=== PATIENT | female | born 1985 | race Caucasian/White ===

== ENCOUNTER 2024-09-15 19:32 | Emergency (ER) | payer OTHER, SELFPAY ==
[2024-09-15 19:41] VITALS: BP 147/95; PULSE 76; RESP 20; TEMP 36.7; O2SAT 100
--- NOTE | 2024-09-15 19:42 | ED_ITS ---
HPI - Dental/Oral General Chief complaint: Dental/Oral Stated complaint: tooth pain Time Seen by Provider: 09/15/24 19:42 Source: patient, family, RN notes reviewed and old records reviewed Mode of arrival: ambulatory Limitations: no limitations History of Present Illness HPI Narrative: 39 year old female accompanied by family member with complaints of dental pain to the left lower most posterior tooth which is wisdom tooth. Tooth has redness and swelling with some bloody looking drainage around gum. tissue around tooth inflamed and swollen. Patient reporting that pain has become really bad today. Patient reports that upper wisdom tooth has bothered her also but lower one is causing the acute pain today . Patient noted to have some broken teeth and cavities. Patient reports that she has been told that she needs wisdom teeth extracted. Patient reports that she has taken some Ibuprofen with out improvement. MD Complaint: tooth pain Location: Tooth # (17) Onset (ago): day(s) (increased pain today to #!7 tooth) Duration: constant Severity: moderate Related Data Home Medications ?Medication ?Instructions ?Recorded ?Confirmed ?Last Taken ?Type naltrexone-bupropion PO 09/15/24 Unknown History Allergies Allergy/AdvReac Type Severity Reaction Status Date / Time amoxicillin Allergy Unknown Unknown Verified 09/15/24 19:45 Review of Systems Review of Systems: CONSTITUTIONAL: Denies fever, chills, or sweats. ENT: Denies rhinorrhea, congestion, sore throat, or otalgia. Reports dental pain ro left upper and lower most posterior molars, Patient reports that she has been told by dentist that she needs her wisdom teeth removed, Patient reports that she has some pain to her jaw area also from the teeth, no acute facial swelling noted. CARDIOVASCULAR: Denies chest pain, palpitations, or edema. RESPIRATORY: Denies cough or dyspnea. SKIN: Denies rash or itching. MUSCULOSKELETAL: Denies myalgia. NEUROLOGIC: Denies headache All systems reviewed & are unremarkable except as noted in HPI and below PMFSH Past Medical History Medical History (Updated 09/17/24 @ 16:25 by Michelle Hewitt NP) Fracture of lower limb, left, open had dontrell in leg Surgical History Surgical History (Updated 09/17/24 @ 16:24 by Michelle Hewitt NP) H/O section x2 Social History Social History (Updated 09/17/24 @ 16:25 by RUTHIE Jean Smoking status: Never smoker Alcohol intake: current Alcohol use details: social Substance use type: does not use Living arrangements: with family Gender identity (if verbalized by the patient): Female Comments At time of signature, agree with nursing past medical, surgical, social and family history. There is no relevant family history pertinent to the presenting complaint Exam Narrative: GENERAL: Well-appearing, well-nourished, and in no acute distress. HEAD: Normocephalic, atraumatic. EYES: PERRLA and EOMI. ENT: Nares clear, no rhinorrhea or epistaxis. Mucous membranes moist. broken teeth, caries noted with left lower wisdom tooth impacted with swelling and redness and pain NECK: Supple. no lymphadenopathy CHEST: Clear to auscultation. No respiratory distress.[id number]% on room air HEART: Regular rate and rhythm. No murmur heard. Normal peripheral pulses. SKIN: Warm, dry, no rash. NEURO: No focal deficits. Alert and oriented x3. Course Course Emergency Course: Patient is aware of diagnosis, understands and agrees to treatment plan. Anticipatory guidance given. Patient agrees to follow-up as directed and is aware of reasons to seek care at the emergency department. Portions of this record may have been created with voice recognition software Level of Care: Express Care Visit Vital Signs Vital signs: Vital Signs Temperature 36.7 C 09/15/24 19:41 Pulse Rate 76 09/15/24 19:41 Respiratory Rate 20 09/15/24 19:41 Blood Pressure 147/95 H 09/15/24 19:41 Pulse Oximetry 100 09/15/24 19:41 Oxygen Delivery Room Air 09/15/24 19:41 Temperature 36.7 C 09/15/24 19:41 Pulse Rate 76 09/15/24 19:41 Respiratory Rate 20 09/15/24 19:41 Blood Pressure 147/95 H 09/15/24 19:41 Pulse Oximetry 100 09/15/24 19:41 Oxygen Delivery Room Air 09/15/24 19:41 Reviewed MDM - Dental/Oral MDM Narrative Medical decision making narrative: Patients pain and complaint coupled with physical findings are consistent with dentalgia. There are no focal signs of space occupying lesions that are compromising to the airway; no dysphagia, odynophagia, dysphonia, or dyspnea. No uvular deviation or soft palate edema. Patient is non-toxic appearing. The floor of the mouth is soft with no signs of Bolivar's Angina; no induration below mandible, no neck pain.? Patient is without trismus or drooling and able to swallow secretions.? Patient is felt appropriate for discharge home with dental follow up. Differential Diagnosis Differential diagnosis: Likely dental caries, toothache, dental abscess and other (impacted wisdom tooth) Medical Records Attestation: I reviewed the patient's medical records. Critical Care Time Critical Care Time Critical Care Time: No Discharge Plan Discharge Clinical Impression: Dental abscess, Pain, dental, Dental caries Patient Disposition: Home Condition: Stable Instructions: Antibiotic Form, Dental Abscess (ED) Additional Instructions: Avoid temperature extremes May apply heat or ice to the face Gentle brushing and flossing Antibiotic as directed Tylenol for lesser pain Use ibuprofen regularly Peridex mouth wash use as ordered Follow-up with the oral surgeon list given as soon as possible--see the list provided If your symptoms persist, change or worsen significantly before you can contact your personal physician then please, without delay, go to the emergency department for further evaluation. Follow-up with PCP in 7-10 days or sooner if needed Follow up with PCP soon in regards to your blood pressure which is elevated above threshold for referral. Blood pressure above 120/80 may indicate pre- hypertension. 147/95 Patient Language: Slovenian Prescriptions: New clindamycin HCl [Cleocin HCl] 300 mg capsule 300 mg PO Q8H Qty: 30 0RF chlorhexidine gluconate [Peridex] 0.12 % mouthwash 15 ml mucous membrane BID Qty: 473 0RF Rx Instructions: use twice daily No Action naltrexone-bupropion [Contrave] PO Follow-up/Referrals: UNKNOWN,DOCTOR [Primary Care Provider] - Stand Alone Forms: Work/School Release IP Time of Disposition: 19:59 Quality Bryan Coma Scale Eyes: Open Verbal: Oriented and Alert Motor: Follows Commands Force Coma Total Score: 15
== END 2024-09-15 20:03 | disposition home or self-care (01) ==
PROVIDERS: Emergency Provider Registered Nurse
DX: K04.7 Periapical abscess without sinus (principal); K02.9 Dental caries, unspecified
CPT/HCPCS: 99203; G0463